=== PATIENT | male | born 1955 | race Caucasian/White ===

== ENCOUNTER 2019-03-25 15:00 | Emergency (ER) | payer SELFPAY ==
--- NOTE | 2019-03-25 16:05 | RAD ---
LEFT FOOT 3 VIEWS: Date: 03/25/19 HISTORY: Cellulitis. Open wound. COMPARISON: Left foot films of 08/05/14. 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 Degenerative change at the residual first MTP joint. Evidence of periosteal reaction along the distal first metatarsal could represent osteomyelitis. The other phalanges and metatarsals appear intact and unremarkable. No other definite evidence of ost eomyelitis by plain film. Degenerative changes in the tarsals with enthesophytes from the calcaneus again noted. Soft tissue swelling is seen at the ankle, mid foot, and forefoot region. This is consistent with a h istory of cellulitis. IMPRESSION: Amputation of the great toes when compared to the prior study. I cannot exclude erosive change in per iosteal reaction at the first MTP joint and distal first metatarsal. No other evidence of focal osteo myelitis. Soft tissue swelling consistent with cellulitis. POS: [facility]
[2019-03-25 16:41] LABS: #Basophils 0.1 thou/uL (0.0-0.2); #Eosinphils 0.3 thou/uL (0.0-0.7); #Monocytes 0.7 thou/uL (0.11-0.59); #Neutrophils 4.6 thou/uL (1.40-6.50); %Eosinophils 3.7 % (0.0-10.0); %Lymphocytes 26.2 % (21.0-51.0); %Monocytes 8.8 % (0.0-10.0); %Neutrophils 60.3 % (42.0-75.0); Hemoglobin 12.6 g/dL (14.0-18.0); Mean Corpuscular HGB CONC 32.1 g/dL (32.0-36.0); Mean Corpuscular Hemoglobin 29.8 pg (27.0-31.0); Mean Corpuscular Volume 92.8 fL (78.0-98.0); Platelet Count 291 thou/uL (130-400); RBC Distribution Width 13.4 % (11.5-14.5); Red Blood Cell (RBC) Count 4.22 mill/uL (4.70-6.10); White Blood Cell (WBC) Count 7.7 thou/uL (4.8-10.8)
[2019-03-25 16:54] LABS: ALT (SGPT) 14 U/L (8-55); AST (SGOT) 25 U/L (5-34); Albumin 4.3 g/dL (3.4-4.8); Alkaline Phosphatase 402 U/L (40-110); Anion Gap 14 mmol/L (10-20); BUN (Urea Nitrogen) 10 mg/dL (8.4-25.7); Bilirubin, Total 0.6 mg/dL (0.2-1.2); Calc. Creatinine Clearance 0 mL/min (70-130); Calcium 9.8 mg/dL (7.8-10.44); Carbon Dioxide 23 mmol/L (23-31); Chloride 106 mmol/L (98-107); Estimated GFR-MDRD Greater than 90; Globulin 3.3 g/dL (2.4-3.5); Glucose 123 mg/dL (80-115); Potassium 3.5 mmol/L (3.5-5.1); Protein, Total 7.6 g/dL (5.8-8.1); Sodium 139 mmol/L (136-145)
== END 2019-03-25 17:51 | disposition short-term general hospital (02) ==
LOC: MADERS 15:00
DX: L08.9 Local infection of the skin and subcutaneous tissue, unspecified (principal); R03.0 Elevated blood-pressure reading, without diagnosis of hypertension; N40.0 Benign prostatic hyperplasia without lower urinary tract symptoms; F32.9 Major depressive disorder, single episode, unspecified
CPT/HCPCS: 36415; 80053; 83605; 85025; 87040